=== PATIENT | female | born 1990 | race Asian ===

== ENCOUNTER 2019-07-02 16:20 | Observation (INO) | payer SELFPAY ==
[2019-07-02 16:55] VITALS: BP 112/87
== END 2019-07-02 18:25 | disposition home or self-care (01) ==
LOC: MLD 16:20
PROVIDERS: ADMIT Obstetrics & Gynecology; ATTEND Obstetrics & Gynecology
DX: O36.8330 Maternal care for abnormalities of the fetal heart rate or rhythm, third trimester, not applicable or unspecified (principal); Z3A.35 35 weeks gestation of pregnancy
CPT/HCPCS: 59025; 96372; G0378